=== PATIENT | female | born 1965 | race Hispanic/Latino ===

== ENCOUNTER 2022-04-05 15:15 | Emergency (ER) | payer OTHER ==
[2022-04-05 15:20] VITALS: BP 106/71
[2022-04-05] MEDS ORDERED: LORAZEPAM 1 MG TABLET ONE (15:54)
[2022-04-05] MEDS ORDERED: LORAZEPAM 1 MG TABLET PO ONE (16:00)
== END 2022-04-05 16:20 | disposition home or self-care (01) ==
LOC: EDH 15:15
DX: F41.9 Anxiety disorder, unspecified (principal); F32.A Depression, unspecified; E11.9 Type 2 diabetes mellitus without complications; E78.00 Pure hypercholesterolemia, unspecified; I10 Essential (primary) hypertension

== ENCOUNTER 2024-11-12 05:42 | Day surgery (SDC) | payer OTHER ==
[2024-11-09 13:54] LABS: MEAN CORPUSCULAR HEMOGLOBIN 30.9 pg (27.0-33.0); MEAN CORPUSCULAR HGB CONC 33.1 g/dL (32.0-36.0); MEAN CORPUSCULAR VOLUME 93.5 fL (79-99); RED BLOOD CELL COUNT(AUTO) 3.85 MIL/uL (4.00-5.50); RED CELL DISTRIBUTION WIDTH 13.2 % (11.0-15.5); WHITE BLOOD COUNT (AUTO) 6.2 K/uL (4.8-10.8)
[2024-11-09 14:02] LABS: POTASSIUM 3.5 mmol/L (3.5-5.1)
--- NOTE | 2024-11-09 14:08 | HMCIMG ---
CHEST 1VW HISTORY: Preop COMPARISON: None FINDINGS: A frontal projection of the chest was obtained. No acute pulmonary infiltrates is seen. The heart is normal in size. Degenerative changes are seen. Right venous catheter is seen. IMPRESSION: 1. No acute pulmonary infiltrate is seen.
[2024-11-09 14:19] LABS: INR 0.96 (0.85-1.15); PROTHROMBIN TIME 10.2 SEC (9.6-11.6)
[2024-11-09 14:20] LABS: PARTIAL THROMBOPLASTIN TIME 27.5 SEC (26.3-35.5)
--- NOTE | 2024-11-09 14:40 | EKG ---
[facility] Test Date: 2024-11-09 Test Time: 13:35:56 Pat Name: MAURICE MCCRAY Department: [facility] Room: Gender: F Hospitality Specialist: [id number] : 1965 Requested By: ANDREW ROMAN Order Number: [id number] Reading MD: Migue Garibay Measurements Intervals [place] Rate: 75 P: 33 NV: 185 QRS: -31 QRSD: 102 T: 44 QT: 422 QTc: 471 Interpretive Statements Sinus rhythm Left axis deviation Electronically Signed On 11-09-2024 14:46:48 CDT by Migue Garibay Please click the below link to view image of tracing.
[2024-11-10 13:29] VITALS: BP 135/68; PULSE 62; RESP 18; TEMP 97.7
[2024-11-12] VITALS (16 sets, daily range): BP systolic 124–182; BP diastolic 43–87; PULSE 73–90; RESP 13–19; TEMP 97.3–97.7
[~2024-11-12] VITALS: Ht 144.8 cm; Wt 55.6 kg
[~2024-11-12 05:42] MED LIST: AMLO-258 PO; ASPI-1197 PO; ATOR40TA71 PO; CHOL200059 PO; CLOP-31 PO; FOLI0.8T22 PO; FOLI1 PO; GABA-529 PO; METO50TA9 PO; OMEG-102 PO; SEVE0.8P PO
[2024-11-12] MEDS ORDERED: 0.9% NACL 500ML IV.SOLN 500 ML IV SCH (06:30)
[2024-11-12] MEDS ORDERED: 0.9% NACL 500ML IV.SOLN 500 ML IV ONE (07:06)
[2024-11-12] MEDS: ceFAZolin SODIUM 2 GM VIAL ONE (07:08)
[2024-11-12] MEDS ORDERED: HEParin-NS 1,000 UNIT/500 ML 500 ML IV ONE (07:13)
[2024-11-12] MEDS ORDERED: LIDOCAINE PF 100MG/5ML (2%) SYRINGE 5ML ONE (07:14)
[2024-11-12] MEDS ORDERED: dexaMETHasone SOD PHOSPHATE 4 MG/ML 1ML VIAL ONE (07:14)
[2024-11-12] MEDS ORDERED: ondanSETRON 4MG INJ ONE (07:15)
[2024-11-12] MEDS ORDERED: proPOFol 10 MG/ML 20ML VIAL IV ONE (07:15)
[2024-11-12] MEDS ORDERED: MIDAZOLAM HCL 1 MG/ML 2ML VIAL ONE (07:15)
[2024-11-12] MEDS ORDERED: rocuRONium bROMide 10MG/1ML 5ML VL ONE (07:15)
[2024-11-12] MEDS ORDERED: FENTanyl CITRate PF 50 MCG/1 ML 2ML VIAL ONE (07:16)
[2024-11-12] MEDS ORDERED: phenylEPHRINE HCL 10 MG/ML 1ML VIAL IV ONE (07:18)
[2024-11-12] MEDS ORDERED: SEVE800PW PO (07:19)
[2024-11-12] MEDS ORDERED: GABA-529 PO (07:19)
[2024-11-12] MEDS ORDERED: METO-391 PO (07:19)
[2024-11-12] MEDS ORDERED: APOTEX PO (07:19)
[2024-11-12] MEDS ORDERED: renavite (07:19)
[2024-11-12] MEDS ORDERED: vit D3 (07:19)
[2024-11-12] MEDS ORDERED: CLOP-31 PO (07:19)
[2024-11-12] MEDS ORDERED: AMLO-258 PO (07:19)
[2024-11-12] MEDS ORDERED: ASPI-1005 PO (07:19)
[2024-11-12] MEDS ORDERED: FOLI20CA PO (07:19)
[2024-11-12 08:16] LABS: CREATININE 3.2 mg/dL (0.5-1.0); POTASSIUM 3.2 mmol/L (3.5-5.1)
[2024-11-12] MEDS: ceFAZolin SODIUM 1 GM VIAL ONE (08:30)
[2024-11-12] MEDS ORDERED: HEParin 10,000 UNIT/10ML (1,000 UNIT/ML) VIAL ONE (08:32)
[2024-11-12] MEDS ORDERED: GLYCOPYRROLATE 0.2 MG/ML 5 ML VIAL ONE (08:43)
[2024-11-12] MEDS: FENTanyl CITRate PF 50 MCG/1 ML 2ML VIAL ONE (10:05)
--- NOTE | 2024-11-12 10:13 | OP ---
DATE OF PROCEDURE: 11/12/2024 TIME: 9:00 a.m. PREOPERATIVE DIAGNOSIS: Endstage renal disease and failed previous left arteriovenous fistula. POSTOPERATIVE DIAGNOSIS: Endstage renal disease and failed previous left arteriovenous fistula. PROCEDURE PERFORMED: Redo left brachial artery to brachial vein arteriovenous graft placement. SURGEON: Deann Caicedo MD CAPPER MACHINE OPERATOR: Rosa Padgett. DESCRIPTION OF PROCEDURE: Following anesthesia induction without any complication and progression of the operative field, a 5 cm incision was made over the antecubital fossa. The previous brachial artery to venous anastomosis was identified. Proximal and distal control was obtained. After that, an incision was made in the medial arm higher up. The brachial vein was identified. Then, a tunneler was used to tunnel the graft between the brachial artery and the brachial vein higher in the arm. We started by giving heparin. Then, we clamped the brachial artery proximal and distal and we performed anastomosis between the graft and right of the anastomosis with the previously placed venous graft, an end-to-side anastomosis was performed between the artificial graft and the previous venous anastomosis at the brachial artery in an end-to-side fashion using 6-0 Prolene suture. After that, the graft was cut in appropriate length and anastomosis between the graft and the brachial vein was performed in end-to-side fashion using a 6-0 Prolene suture on the venous side in the upper arm. After that, all the clamps were released and there was good blood flow from the brachial artery to brachial vein. After that, protamine dose was given. Hemostasis was obtained and then the wounds were closed with 3-0 Vicryl and 4-0 Monocryl suture. I was present throughout the entire operation. The patient tolerated the operation well and transferred to the postanesthesia care unit in stable condition. TID: [id number] RECEIPT: [id number]
--- NOTE | 2024-11-12 11:25 | NUR ---
Full and complete discharge instructions given to Patient and Family both verbally and in writing. Explained Surgical procedure L AVG precautions and follow up. Bruit and Thrill present. Neurovascularly intact. All questions answered. PIV removed with catheter tip intact. Home with Family W/C to POV.
== END 2024-11-12 11:30 | disposition home or self-care (01) ==
LOC: DAH 05:42
PROVIDERS: ATTEND Thoracic Surgery (Cardiothoracic Vascular Surgery)
DX: E11.22 Type 2 diabetes mellitus with diabetic chronic kidney disease (principal); N18.6 End stage renal disease; I77.0 Arteriovenous fistula, acquired; F41.9 Anxiety disorder, unspecified; F32.A Depression, unspecified; M19.90 Unspecified osteoarthritis, unspecified site; Z86.73 Personal history of transient ischemic attack (TIA), and cerebral infarction without residual deficits; Z90.49 Acquired absence of other specified parts of digestive tract; Z79.899 Other long term (current) drug therapy
CPT/HCPCS: 71045; 80048 ×2; 85027; 85610; 85730; 86850 ×2; 86900 ×2; 86901 ×2; 36415 ×2; 93005; 36832; 01844; 82948 ×2; A6260; J1100; P9034; A4663; J7030; J7040; J3010 ×2; J0690 ×2; J3490 ×2; J2003; J1644 ×2; J2250; J2704; J2405; J2371; A4649; C1713 ×2; C1768; C1781; A4215; A4222; A4221; A4223 ×2